=== PATIENT | male | born 1955 | race Caucasian/White ===

== ENCOUNTER 2021-03-31 00:32 | Inpatient (IN) | payer OTHER, MEDICARE ==
[2021-03-31] VITALS (15 sets, daily range): BP systolic 154–204; BP diastolic 65–136
[~2021-03-31] VITALS: Ht 152.4 cm; Wt 68.0 kg
--- NOTE | ~2021-03-31 | H ---
[facility] [place] [address] HISTORY AND PHYSICAL Name: PAWAN WHEELER Room #: 150-1 ADM IN M.R.#: [id number] Admission: 03/31/21 Attend Phys: Truman Solis MD, Discharge: Date of : 55 Report #: [id number] THIS REPORT FOR: cc: FAM - Family physician unknown FAM - Family physician unknown Truman Solis MD [facility] ~ DATE OF SERVICE: 03/31/2021 HISTORY OF PRESENT ILLNESS: The patient is a 65-year-old male who presented to emergency room, brought in by his having intercourse early this a.m., subsequently had significant substernal chest pain, radiation to left arm, shortness of breath, diaphoresis. The emergency room EKG reveals some subtle ST elevation in II, III, aVF with reciprocal changes in the lateral and anterior leads. Prior bypass surgery 10 years ago, he has been lost a Cardiology followup he says for 6 years. He is taking no medications he states. There is still some intermittent tobacco use. I was able to obtain the bypass report, it looks to be a SCOTT to an LAD and SVG to ramus 1 and sequential to ramus 2 and what appeared to be a dominant circumflex system. That was approximately 10 years ago by Reji Hardwick. Lock Corner Machine Operator at that time had been Dr. Zuniga. He has not noticed any changes, perhaps more fatigued, but there has not been any prior symptomatology of chest pain or anginal type symptoms. He has been given heparin, Lipitor 80, aspirin. Some improvement in the discomfort. He is being brought to the clinical genetics laboratory chief emergently. MEDICATIONS: None due to what appears to be noncompliance. PAST MEDICAL HISTORY: Positive for coronary artery disease with bypass surgery 10 years ago as stated above, hypertension, hypercholesterolemia, DJD, tobacco use, and appendectomy as a child. SOCIAL HISTORY: He is . Grown children. He is retired, intermittent tobacco use. No significant alcohol use. FAMILY HISTORY: Father early from premature coronary disease in his 50s, he believes. REVIEW OF SYSTEMS: Essentially negative except for stated above, some occasional hesitancy. ALLERGIES: PENICILLIN. PHYSICAL EXAMINATION: VITAL SIGNS: Pulse is 70s, blood pressure is 130s-140s/80s. HEENT: Eyes reveal xanthelasmas. Pharynx is clear. NECK: Shows preserved upstrokes without JVD or bruits. LUNGS: Slight prolonged expiratory phase, but clear anteriorly. [facility] [address] [place] [address] HISTORY AND PHYSICAL Name: PAWAN WHEELER Room #: 150-1 [facility] IN [facility]#: [id number] Admission: 03/31/21 Attend Phys: Truman Solis MD, Discharge: Date of : 55 Report #: [id number] HEART: Regular rate and rhythm, S1, S2. ABDOMEN: Soft, slightly distended, but nontender. EXTREMITIES: Reveal diminished pulses, but intact. NEUROLOGIC: Nonfocal. SKIN: Warm and dry without xanthoma or ulcer. MUSCULOSKELETAL: Generalized arthritic changes. IMPRESSION: 1. Acute inferior wall myocardial infarction. 2. Coronary artery disease with history of bypass surgery approximately 10 years ago with a SCOTT to LAD and an SVG sequential to ramus 1 and ramus intermedius 2, apparent dominant circumflex system. 3. Hypertension. 4. Hypercholesterolemia. 5. Continued tobacco use. RECOMMENDATIONS AND PLAN: The patient is emergently taken to the catheterization lab for intervention. Risks, benefits, and alternatives were discussed. We will proceed on urgently. Improvement is noted in his discomfort with the heparin. To clarify the bypass was 05/2011. Thank you for assisting in the care of this patient. By: 0131 [id number] Truman Solis MD, FACC /nt
--- NOTE | ~2021-03-31 | D ---
[facility] [place] [address] DISCHARGE SUMMARY Name: PAWAN WHEELER Room #: 212-P [facility] IN M.R.#: [id number] Admission: 03/31/21 Attend Phys: Truman Solis MD, Discharge: 04/01/21 Date of : 55 Report #: [id number] THIS REPORT FOR: cc: FAM - Family physician unknown FAM - Family physician unknown Truman Solis MD [facility] DATE OF SERVICE: 04/01/2021 HOSPITAL COURSE: The patient is a 65-year-old male who presented with a stuttering posterior infarct. He was emergently taken to the catheterization lab. This had occurred in the manager content hours after some extracurricular activity with his . He had a subtotaled circumflex, which was dilated and stented; a large OM branch, which was dilated and stented and then I was able to dilate through the proximal circumflex stent into the ramus intermedius branch. He had had a bypass graft that went to ramus intermedius 2. I suspect this was a jump and that may have also been a culprit, but there was no way to intervene on that, but a good result was obtained, with brisk flow into the circumflex system and the ramus branch through the stent. The SVG to the first ramus branch was widely patent. The SCOTT was widely patent to the LAD, with moderate disease in that LAD and this was a large wraparound LAD, filled the distal third of the inferior wall. Mild LV dysfunction. Some of this may improve. There was obviously a positive troponin. He has been pain free since, up and ambulating. He will be discharged to home on atorvastatin 40, full aspirin for 1 month and dual-antiplatelet therapy to include Effient 10 mg a day, Bystolic 10 mg a day and olmesartan 40 mg a day. Smoking cessation strongly recommended. He may use a nicotine patch if necessary. He will use melatonin at night. His baseline EKG at discharge has a right bundle-branch block and sinus rhythm with marked T-wave abnormalities in the anterior and some also inferolateral changes. DISCHARGE DIAGNOSIS: 1. MU-qihlebpvu-gbrjnoccbb infarction, with emergent intervention to circumflex system. See above. 2. Mild ischemic cardiomyopathy. 3. Hypertension. 4. Hypercholesterolemia. 5. Coronary artery disease with original coronary artery bypass graft surgery 2010. 6. Continued tobacco use, which we are hoping for smoking cessation. Followup was arranged in 2-3 weeks with an abbreviated echo to obtain baseline ejection fraction, which I suspect will be 45%-50% range. We will continue dual-antiplatelet therapy with these multiple stents for at least 1 year. He has a low bleeding risk. Smoking cessation strongly recommended. [address] [address] DISCHARGE SUMMARY Name: PAWAN WHEELER Room #: 212-P DIS IN M.R.#: [id number] Admission: 03/31/21 Attend Phys: Truman Solis MD, Discharge: 04/01/21 Date of : 55 Report #: [id number] Thank you for allowing to assist in the care of this patient. By: 9 0839 Truman Solis MD, FACC /nt
[~2021-03-31 00:32] MED LIST: ACETAMINOPHEN325 M1 PO; ATROVENT30 ML IH; CLONIDINE HCL0.3 M2 PO; CRESTOR10 MG PO; FERREX-150 PLU150 MG PO; GNP THERAPEUTI1 EACH PO; LISINOPRIL20 MG PO; LISINOPRIL40 MG PO; LORTAB 5 MG/5001 TA1 PO; MINIPRIN81 MG PO; NITROGLYCERIN0.4 MG SL; NORVASC10 MG PO; PERCOCET 5-3251 EACH PO; TOPROL XL50 MG PO
[2021-03-31] MEDS ORDERED: CHILDREN'S ASPI81 M1 PO (00:38)
[2021-03-31] MEDS ORDERED: [UNRECOGNIZED DRUG - OTHER] PO (00:39)
[2021-03-31 00:59] LABS: ABSOLUTE NEUTROPHILS 5.1 thou/uL (1.4-8.2); BASOPHILS 0.6 % (0.0-2.0); EOSINOPHILS 2.2 % (0.0-3.0); HEMATOCRIT 43.1 % (42.0-52.0); HEMOGLOBIN 14.7 gm/dL (14.0-18.0); LYMPHOCYTES 39.9 % (24.0-44.0); MCH 29.5 pg (26.0-34.0); MCV 86.6 fL (80.0-100.0); MONOCYTES 9.6 % (1.0-8.0); PLATELET COUNT 237 thou/uL (150-400); POLYS 47.7 % (36.0-66.0); RBC 4.98 mil/uL (4.50-6.00); RDW 14.7 % (10.5-14.5); WBC 10.7 thou/uL (4.0-11.0)
[2021-03-31 01:03] LABS: CALCIUM 8.8 mg/dL (8.5-10.1); CREATININE 1.3 mg/dL (0.7-1.3); POTASSIUM 3.7 mmol/L (3.5-5.1)
[2021-03-31 01:13] LABS: TOTAL BILIRUBIN 0.3 mg/dL (0.2-1.0); TOTAL PROTEIN 7.3 g/dL (6.4-8.2)
[2021-03-31 05:25] LABS: HEMATOCRIT 45.6 % (42.0-52.0); HEMOGLOBIN 15.1 gm/dL (14.0-18.0); MCH 29.1 pg (26.0-34.0); MCHC 33.1 g/dL (28.0-37.0); MCV 87.8 fL (80.0-100.0); RBC 5.19 mil/uL (4.50-6.00); RDW 15.1 % (10.5-14.5); WBC 11.1 thou/uL (4.0-11.0)
[2021-03-31 06:01] LABS: ANION GAP 12 mmol/L (7-16); BUN 17 mg/dL (7-18); CALCIUM 8.5 mg/dL (8.5-10.1); CHLORIDE 106 mmol/L (98-107); CHOLESTEROL 215 mg/dL (<200); CO2 24 mmol/L (21-32); CREATININE 1.1 mg/dL (0.7-1.3); GLUCOSE 107 mg/dL (74-106); HDL CHOLESTEROL 38 mg/dL (>40); LDL CHOLESTEROL 150 mg/dL (<100); POTASSIUM 3.9 mmol/L (3.5-5.1); SODIUM 142 mmol/L (136-145); TC:HDL 5.7 Ratio (Not establshd); TRIGLYCERIDE 135 mg/dL (<150); VLDL 27 mg/dL (<40)
[2021-03-31 06:07] LABS: SERUM ASSESSMENT Clear
--- NOTE | 2021-03-31 08:28 | NUR ---
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
--- NOTE | 2021-03-31 16:43 | NUR ---
PT DID WELL THROUGHOUT SHIFT. GROIN SITE NO REDNESS, HEMATOMA, OR ANY OTHER ISSUES. PT DID BECOME ANXIOUSE THIS AM RECEIVED 1 DOSE OF XANAX AND NICOTINE PATCH, PT STATED THAT HELPED AND STATED NO NEW COMPLAINTS. URINE OUTPUT ADEQUATE. REMOVED O2 THIS AM PT REMAINED ABOVE 97 PERCENT THROUGHOUT SHIFT.
[2021-04-01 00:03] VITALS: BP 162/107
[2021-04-01 04:19] LABS: HEMOGLOBIN 14.8 gm/dL (14.0-18.0); MCH 29.9 pg (26.0-34.0); MCHC 34.4 g/dL (28.0-37.0); MCV 87.1 fL (80.0-100.0); RBC 4.94 mil/uL (4.50-6.00); RDW 14.8 % (10.5-14.5)
[2021-04-01 04:26] LABS: CALCIUM 8.7 mg/dL (8.5-10.1); CREATININE 1.2 mg/dL (0.7-1.3); POTASSIUM 3.6 mmol/L (3.5-5.1)
[2021-04-01 04:28] VITALS: BP 172/100
[2021-04-01 06:30] VITALS: BP 177/88
[2021-04-01 07:17] VITALS: BP 149/92
--- NOTE | 2021-04-01 07:32 | NUR ---
SLEPT PART OF SHIFT. BLOOD PRESSURE ELEVATED THIS SHIFT. LANDSCAPING AND GROUNDSKEEPING LABORER NOTIFIED AND HYDRALIZINE GIVEN X1 WITHOUT RELIEF BP REMAINED 177/88. AM MEDICATIONS GIVEN EARLY AND BP now 149/92. WORKING ON GOALS AND PLAN OF CARE, NOTIFIED DR. HUSSEIN THIS AM OF ORDERS FOR HYDRALIZE FROM LANDSCAPING AND GROUNDSKEEPING LABORER AND MEDICATIONS GIVEN EARLY. PATIENT ANXIOUS AND STATES EVERY 30 RR HAS SHORTNESS OF AIR. AWARE. NO NEW ORDERS. CONTINUE TO ASSES CLOSELY.
[2021-04-01] MEDS ORDERED: EFFIENT10 MG PO ×2 (09:07→09:08)
[2021-04-01] MEDS ORDERED: BENICAR40 MG PO ×2 (09:07→09:08)
[2021-04-01] MEDS ORDERED: ASPIRIN325 PO ×2 (09:07→09:08)
[2021-04-01] MEDS ORDERED: BYSTOLIC10 MG PO ×2 (09:07→09:08)
[2021-04-01] MEDS ORDERED: LIPITOR40 MG PO ×2 (09:07→09:08)
--- NOTE | 2021-04-01 10:26 | 2DMMODE ---
[facility] [place] [address] 2 D/M-MODE ECHOCARDIOGRAM Name: PAWAN WHEELER Room #: 212-P ADM IN M.R.#: [id number] Admission: 03/31/21 Attend Phys: Truman Solis MD, Discharge: Date of : 55 Report #: [id number] THIS REPORT FOR: cc: FAM - Family physician unknown FAM - Family physician unknown Truman Solis MD [facility] ~ APPROVED REPORT Study performed: 03/31/2021 08:38:52 EXAM: Comprehensive 2D, Doppler, and color-flow Echocardiogram Patient Location: Bedside Room #: 212 Status: on-call BSA: 1.77 HR: 77 bpm BP: 178/97 mmHg Rhythm: Sinus arrhythmia Other Information Study Quality: Adequate Indications STEMI. Hx: CABG, HTN, HLP, tobacco abuse. 2D Dimensions RVDd: 23.28 mm IVSd: 13.43 (7-11mm) LVOT Diam: 20.44 (18-24mm) LVDd: 48.04 mm PWd: 13.71 (7-11mm) Ascending Ao: 33.35 (22-36mm) LVDs: 37.42 (25-40mm) Left Atrium: 37.53 (27-40mm) Aortic Root: 40.19 mm Volumes Left Atrial Volume (Systole) Single Plane 4CH: 23.89 mL Single Plane 2CH: 43.08 mL LA ESV Index: 19.00 mL/m2 Aortic Valve AoV Peak Asael.: 1.22 m/s AO Peak Gr.: 5.99 mmHg LVOT Max P.19 mmHg LVOT Max V: 0.89 m/s [facility] [address] [place] [address] 2 D/M-MODE ECHOCARDIOGRAM Name: PAWAN WHEELER Room #: 212-P [facility] IN [facility]#: [id number] Admission: 03/31/21 Attend Phys: Trumna Solis, Discharge: Date of : 55 Report #: [id number] MONAE Vmax: 2.39 cm2 Mitral Valve E/A Ratio: 0.7 MV Decel. Time: 265.37 ms MV E Max Asael.: 0.56 m/s MV A Asael.: 0.77 m/s MV PHT: 76.96 ms IVRT: 128.03 ms Pulmonary Valve PV Peak Asael.: 0.79 m/s PV Peak Gr.: 2.51 mmHg Tricuspid Valve RAP Estimate: 5.00 mmHg Left Ventricle The left ventricle is normal size. Regional wall motion abnormalities are noted. Mild concentric left ventricular hypertrophy. Left ventricular systolic function is mildly decreased. LVEF is 45%.inf lateral hypokinesis Mild diastolic dysfunction is present (impaired relaxation pattern). Right Ventricle The right ventricle is normal size. The right ventricular systolic function is normal. Atria The left atrium size is normal. The right atrium size is normal. Aortic Valve The aortic valve is normal in structure. No aortic regurgitation is present. There is no aortic valvular stenosis. Mitral Valve The mitral valve is normal in structure. There is no mitral valve regurgitation noted. No evidence of mitral valve stenosis. Tricuspid Valve The tricuspid valve is normal in structure. There is no tricuspid valve regurgitation noted. Unable to assess PA pressure. Pulmonic Valve The pulmonary valve is normal in structure. Trace pulmonic regurgitation. [facility] [address] [place] [address] 2 D/M-MODE ECHOCARDIOGRAM Name: PAWAN WHEELER Room #: 212-P [facility] IN M.R.#: [id number] Admission: 03/31/21 Attend Phys: Truman Solis, Discharge: Date of : 55 Report #: [id number] Great Vessels Aortic root is mildly dilated. The ascending aorta is normal in size. IVC is normal in size and collapses >50% with inspiration. Pericardium There is no pericardial effusion. <Conclusion> The left ventricle is normal size. Mild concentric left ventricular hypertrophy. LVEF is 45%.inf lateral hypokinesis Mild diastolic dysfunction is present (impaired relaxation pattern). The right ventricle is normal size. The left atrium size is normal. The aortic valve is normal in structure. There is no mitral valve regurgitation noted. There is no tricuspid valve regurgitation noted. Unable to assess PA pressure. Aortic root is mildly dilated. There is no pericardial effusion. <ELECTRONICALLY SIGNED> By: Truman Solis MD, FACC 04/01/21 1026 1026 1026 Truman Solis MD, FAC /INF
[2021-04-01 10:35] VITALS: BP 149/92
--- NOTE | 2021-04-01 10:36 | CATHLAB ---
[facility] [place] [address] INVASIVE PROCEDURE REPORT Name: PAWAN WHEELER Room #: 212-P ADM IN M.R.#: [id number] Admission: 03/31/21 Attend Phys: Truman Solis MD, Discharge: Date of : 55 Report #: [id number] THIS REPORT FOR: cc: FAM - Family physician unknown FAM - Family physician unknown Truman Solis MD [facility] ~ APPROVED REPORT Study performed: 03/31/2021 01:03:03 Patient Details Patient Status: ED Room #: The patient is a 65 year-old male Event Personnel Truman Solis Career Information Specialist, Sara Bernal RN RN, Jazmyne Glover RT(R)() Monitor, Aury Culver RTR, SENIOR INVESTMENT MANAGER Scrub Procedures Performed Art Access - R femoral artery* DYLAN Place w/wo Plasty Single OM 723089 DYLAN Place w/wo Plasty Single CIRC 679479 PTCA Single Vessel RAMUS Interm 1144383 PCISINGLE Left Heart Cath Coronaries, Bypass Grafts 7333835 LHCCORCABG Abdominal Aortography 644107 83733 Initial Mod Sed Same Phys/QHP Gr5y 667140 84865 Mod Sed Same Phys/QHP Ea 742349 Procedure Narrative The Right Groin^ was infiltrated with 1% Lidocaine subcutaneous anesthesia. A PINNACLE 6FR Sheath #[id number] sheath was inserted into the RFA^. Coronary angiography was performed using coronary diagnostic catheters. The right coronary system was accessed and visualized with a JR4 catheter. The left coronary system was accessed and visualized with a JLR catheter. The left ventricle was accessed and visualized with a PIGTAIL catheter. The patient tolerated the procedure well and there were no complications associated with the procedure. There was no hematoma. The PT had grafts that were visualized witha 6F RCB catheter. SVG to Ramus 1, SVG to Ramus 2 and SCOTT to LAD. Intraoperative Conscious Sedation Fentanyl 50 mcg Versed 1 mg Fluoro Time: 12.03 minutes Dose: DAP 90250.20 cGycm2 [facility] [address] [place] [address] INVASIVE PROCEDURE REPORT Name: LIAMPAWAN Roby Room #: 212-P [facility]#: [id number] Admission: 03/31/21 Attend Phys: Truman Solis, Discharge: Date of : 55 Report #: [id number] Contrast Type and Amount: Visipaque 207 ml Hemodynamics The aortic pressure is 192/95 mmHg with a mean of 141 mmHg. The left ventricular pressure is 180/18 mmHg with a mean of mmHg. The left ventricular end diastolic pressure is 37 mmHg. PCI Technique Lesion Percutaneous coronary intervention was performed on the first obtuse marginal branch segment. A LAUNCHER 6FR EBU 3.75 #[id number] Guide Catheter was used to engage the ostium. A Luge Wire .014 x 182CM #[id number] Interventional Guidewire was used to cross the lesion. BALLOON DILATION A Balloon catheter Sprinter OTW 2.25 x 12 #[id number] was inserted and inflated up to 8atm for 18seconds. Additional Inflation: 14atm for 15seconds. Additional Inflation: 14atm for 22seconds. STENT DEPLOYMENT A stent RESOLUTE ISELA OTW 2.25 X 12 #[id number] was inserted and inflated up to 12atm for 23seconds. PCI Technique Lesion 3 Percutaneous Coronary Intervention was performed on the proximal circumflex artery segment. A LAUNCHER 6FR EBU 3.75 #005322 Guide Catheter was used to engage the ostium. A Luge Wire .014 x 182CM #[id number] Interventional Guidewire was used to cross the lesion. Stent Deployment A stent RESOLUTE ISELA OTW 2.5 X 22 #[id number] was inserted and inflated up to 18atm for 29seconds. PCI Technique Lesion 4 Percutaneous Coronary Intervention was performed on the ramus intermedius segment. A LAUNCHER 6FR EBU 3.75 #[id number] Guide Catheter was used to engage the ostium. A Luge Wire .014 x 182CM #[id number] Interventional Guidewire was used to cross the lesion. Balloon Dilation A Balloon catheter Sprinter OTW 2.0 x 10 #[id number] was inserted and inflated up to 10atm for 30seconds. Additional Inflation: 14atm for 29seconds. Conclusion #1 Successful PTCA stent of a mid circumflex OM branch subtotal with [address] [address] INVASIVE PROCEDURE REPORT Name: PAWAN WHEELER Room #: 212-P [facility] IN M.R.#: [id number] Admission: 03/31/21 Attend Phys: Truman Solis, Discharge: Date of : 55 Report #: [id number] placement of a 2.25 x 12 resolute stent postdilated 2.4 mm SOFI grade III flow into the jailed OM and distal OM. #2 successful PTCA stent of the proximal circumflex which gave rise to #1. Long high-grade lesion 90 to 95%. Placement of a 2.5 x 22 resolute stent postdilated 2.7 mm SOFI grade III flow. This did retirement a high rising OM or ramus branch that had previously been bypassed. #3 successful PTCA through the proximal circumflex stent into the ramus branch or high rising OM which was subtotaled to 30% residual balloon through the stent. It appears that the sequential graft to ramus 1 was patent but then to ramus 2 was occluded this would be in this vessel. Now patent via the [place] system #4 the [place] LAD is occluded proximally. #5 the LAD is mildly disease giving rise to the circumflex and the occluded LAD. #6 the SCOTT is widely patent. Appears to be at least a moderate stenosis in the subclavian proximal to the SCOTT takeoff. Will evaluate that noninvasively. The LAD is an moderately disease and this is a large wraparound LAD that supplies the distal third of the inferior wall. #7 small nondominant right coronary artery. #8 there is an SVG which is a moderate narrowing of 50% long in the proximal graft filling a moderate size ramus branch. It is appears that this was a sequential to a second ramus branch according to the op report that branch is occluded. #9 normal mall left ventricular size with inferior inferior lateral hypokinesis EF 45% range. #10 abdominal aortogram revealing some tortuosity calcification with a small infrarenal aneurysm. Will evaluate noninvasively outpatient. Recommendations and plan: Continue aggressive risk factor modification. Dual antiplatelet therapy initiated. Resolution of EKG and chest pain post procedure. Will transfer to CCU to follow post coronary stent protocol. <ELECTRONICALLY SIGNED> By: Truman Solis MD, FACC 04/01/21 1036 1036 103 Truman Solis MD, FAC /INF
--- NOTE | 2021-04-01 12:02 | NUR ---
ASSESSMENT CHARTED. PT ALERT AND ORIENTED. VSS. RIGHT GROIN INCISION C/DI. NO HEMATOMA NOTED. DENIED HAVING PAIN OR DISCOMFORT. ORDERS GIVEN TO DISCHARGE PT TO HOME. DISCHARGE INSTRUCTIONS GIVEN TO PT. PT VERBERLISED UNDERSTANDING.
--- NOTE | 2021-04-02 07:27 | EKG ---
[place] [address] [facility] [place] [address] ELECTROCARDIOGRAM REPORT Name: PAWAN WHEELER Room #: 212-[facility] IN M.R.#: [id number] Admission: 03/31/21 Attend Phys: Truman Solis MD, Discharge: 04/01/21 Date of : 55 Report #: [id number] [facility] ED Test Date: 2021-03-31 Test Time: 00:35:19 Pat Name: PAWAN WHEELER Department: Room: 212 Gender: M Geology Scientist: tb : 1955 Requested By: Truman Solis Order Number: [id number] MD: Shahram Stein Measurements Intervals [place] Rate: 72 P: 72 ND: 139 QRS: 77 QRSD: 94 T: 105 QT: 368 QTc: 403 Interpretive Statements Sinus rhythm Multiple premature complexes, vent & supraven Probable left atrial enlargement Probable LVH with secondary repol abnrm Inferior infarct, acute (RCA) Probable RV involvement, suggest recording right precordial leads Baseline wander in lead(s) V2 Compared to ECG 03/31/2021 00:33:43 No significant changes Electronically Signed On 04-02-2021 7:27:23 CDT by Shahram Stein [email or web address] <ELECTRONICALLY SIGNED> By: Shahram Stein MD, [facility] 04/02/21 0727 Shahram Stein MD, [facility] /EPI
--- NOTE | 2021-04-02 07:27 | EKG ---
[place] [address] [place] [address] ELECTROCARDIOGRAM REPORT Name: PAWAN WHEELER Room #: 212-P [facility] IN .R.#: [id number] Admission: 03/31/21 Attend Phys: Truman Solis MD, Discharge: 04/01/21 Date of : 55 Report #: [id number] [facility] ED Test Date: 2021-03-31 Test Time: 00:33:43 Pat Name: PAWAN WHEELER Department: Room: [facility] [place] Gender: M Auger Mill Operator: katherine : 1955 Requested By: Reagan Guillen Order Number: [id number] MD: Shahram Stein Measurements Intervals [place] Rate: 78 P: 75 NV: 139 QRS: 80 QRSD: 94 T: 105 QT: 334 QTc: 381 Interpretive Statements Sinus rhythm Multiple premature complexes, vent & supraven Probable left atrial enlargement Probable LVH with secondary repol abnrm Inferoposterior infarct, acute (RCA) Probable RV involvement, suggest recording right precordial leads Baseline wander in lead(s) V1 Compared to ECG 05/15/2011 07:45:16 Myocardial infarct finding now present T-wave abnormality no longer present Possible ischemia no longer present Electronically Signed On 04-02-2021 7:27:16 CDT by Shahram Stein [email or web address] <ELECTRONICALLY SIGNED> By: Shahram Stein MD, [facility] 04/02/21 0727 Shahram Stein MD, [facility] /EPI
--- NOTE | 2021-04-02 07:34 | EKG ---
[address] [place] [address] ELECTROCARDIOGRAM REPORT Name: PAWAN WHEELER Room #: 212[facility] .R.#: [id number] Admission: 03/31/21 Attend Phys: Truman Solis MD, Discharge: 04/01/21 Date of : 55 Report #: [id number] [facility] Test Date: 2021-04-01 Test Time: 08:55:16 Pat Name: PAWAN WHEELER Department: Room: 212 Gender: M Scaffold Builder: MIRIAM : 1955 Requested By: Flori Carreon Order Number: [id number] MD: Shahram Stein Measurements Intervals [place] Rate: 73 P: 61 [place]: 141 QRS: 20 QRSD: 148 T: -51 QT: 460 QTc: 507 Interpretive Statements Sinus rhythm Left atrial enlargement Right bundle branch block Inferior infarct, age indeterminate Compared to ECG 03/31/2021 00:35:19 Right bundle-branch block now present Myocardial infarct finding still present Electronically Signed On 04-02-2021 7:34:41 CDT by Shahram Stein [email or web address] <ELECTRONICALLY SIGNED> By: Shahram Stein MD, FAC 04/02/21 0734 0855 0855 Shahram Stein MD, [facility] /EPI
== END 2021-04-01 13:13 | disposition home or self-care (01) | DRG 246 ==
LOC: ER 00:32 → TBA 02:41 → 2N 03:23
PROVIDERS: Emergency Medicine; Nurse Practitioner Adult Health; ADMIT Internal Medicine Cardiovascular Disease; ATTEND Internal Medicine Cardiovascular Disease
DX: I21.19 ST elevation (STEMI) myocardial infarction involving other coronary artery of inferior wall (principal); I50.43 Acute on chronic combined systolic (congestive) and diastolic (congestive) heart failure; I25.5 Ischemic cardiomyopathy; E78.00 Pure hypercholesterolemia, unspecified; M19.90 Unspecified osteoarthritis, unspecified site; I45.10 Unspecified right bundle-branch block; I10 Essential (primary) hypertension; I25.10 Atherosclerotic heart disease of native coronary artery without angina pectoris; Z20.822 Contact with and (suspected) exposure to COVID-19; Z95.1 Presence of aortocoronary bypass graft; Z90.49 Acquired absence of other specified parts of digestive tract; Z79.899 Other long term (current) drug therapy; Z79.82 Long term (current) use of aspirin; Z88.0 Allergy status to penicillin; Z82.49 Family history of ischemic heart disease and other diseases of the circulatory system; Z72.0 Tobacco use; Z71.6 Tobacco abuse counseling
CPT/HCPCS: 10081

== ENCOUNTER → 2021-04-20 | Outpatient (CLI) | payer OTHER, MEDICARE ==
[~2021-04-20] MED LIST changes: +ASPIRIN325 PO; +BENICAR40 MG PO; +BYSTOLIC10 MG PO; +CHILDREN'S ASPI81 M1 PO; +EFFIENT10 MG PO; +LIPITOR40 MG PO; +[UNRECOGNIZED DRUG - OTHER] PO
== END ==
LOC: SJCVCIMAG 11:28
PROVIDERS: ATTEND Internal Medicine Cardiovascular Disease
DX: I65.23 Occlusion and stenosis of bilateral carotid arteries (principal); I71.4 Abdominal aortic aneurysm, without rupture; I25.10 Atherosclerotic heart disease of native coronary artery without angina pectoris; I10 Essential (primary) hypertension; E78.00 Pure hypercholesterolemia, unspecified; I25.5 Ischemic cardiomyopathy; Z79.82 Long term (current) use of aspirin; Z79.899 Other long term (current) drug therapy; Z87.891 Personal history of nicotine dependence

== ENCOUNTER → 2021-04-24 | Outpatient (CLI) | payer OTHER, MEDICARE | LOC: SJCVCIMAG 07:40 | PROVIDERS: ATTEND Internal Medicine Cardiovascular Disease | DX: R94.31 Abnormal electrocardiogram [ECG] [EKG] (principal); I25.10 Atherosclerotic heart disease of native coronary artery without angina pectoris; I10 Essential (primary) hypertension; E78.00 Pure hypercholesterolemia, unspecified; I71.4 Abdominal aortic aneurysm, without rupture; Z87.891 Personal history of nicotine dependence; Z79.82 Long term (current) use of aspirin; Z79.899 Other long term (current) drug therapy; Z88.0 Allergy status to penicillin; Z95.818 Presence of other cardiac implants and grafts; Z95.1 Presence of aortocoronary bypass graft; Z72.89 Other problems related to lifestyle ==

== ENCOUNTER → 2021-06-25 | Outpatient (CLI) | payer OTHER, MEDICARE | END | disposition home or self-care (01) | LOC: SJCVC 09:40 | PROVIDERS: ATTEND Internal Medicine Cardiovascular Disease | DX: R94.31 Abnormal electrocardiogram [ECG] [EKG] (principal); I25.10 Atherosclerotic heart disease of native coronary artery without angina pectoris; I25.5 Ischemic cardiomyopathy; I10 Essential (primary) hypertension; E78.00 Pure hypercholesterolemia, unspecified; I71.4 Abdominal aortic aneurysm, without rupture; Z88.0 Allergy status to penicillin; Z95.0 Presence of cardiac pacemaker; Z95.1 Presence of aortocoronary bypass graft ==

== ENCOUNTER → 2021-08-28 | Outpatient (CLI) | payer OTHER, MEDICARE | LOC: MRI 09:43 | PROVIDERS: ATTEND Family Medicine | DX: M51.36 Other intervertebral disc degeneration, lumbar region (principal); M47.817 Spondylosis without myelopathy or radiculopathy, lumbosacral region; N28.1 Cyst of kidney, acquired; I72.8 Aneurysm of other specified arteries; M48.061 Spinal stenosis, lumbar region without neurogenic claudication ==

== ENCOUNTER → 2021-08-29 | Outpatient (CLI) | payer OTHER, MEDICARE ==
[~2021-08-29] MED LIST changes: +ASA81BEC PO; +EDARBYCLOR 40-1 EAC1 PO
== END ==
LOC: SJCVCIMAG 08:33
PROVIDERS: ATTEND Internal Medicine Cardiovascular Disease
DX: I65.21 Occlusion and stenosis of right carotid artery (principal); I73.9 Peripheral vascular disease, unspecified; I77.9 Disorder of arteries and arterioles, unspecified; I25.10 Atherosclerotic heart disease of native coronary artery without angina pectoris; I71.4 Abdominal aortic aneurysm, without rupture; I10 Essential (primary) hypertension; Z95.1 Presence of aortocoronary bypass graft; E78.00 Pure hypercholesterolemia, unspecified; Z82.49 Family history of ischemic heart disease and other diseases of the circulatory system; Z87.891 Personal history of nicotine dependence; Z72.89 Other problems related to lifestyle; Z79.82 Long term (current) use of aspirin; Z88.0 Allergy status to penicillin; Z79.899 Other long term (current) drug therapy

== ENCOUNTER → 2021-09-03 | Outpatient (CLI) | payer OTHER, MEDICARE ==
[~2021-09-03] VITALS: Ht 167.6 cm; Wt 65.8 kg
[2021-09-03 09:23] VITALS: BP 144/79
[2021-09-03 09:33] LABS: HEMATOCRIT 40.2 % (42.0-52.0); HEMOGLOBIN 13.6 gm/dL (14.0-18.0); MCH 29.9 pg (26.0-34.0); MCHC 33.7 g/dL (28.0-37.0); MCV 88.7 fL (80.0-100.0); RBC 4.53 mil/uL (4.50-6.00); RDW 16.2 % (10.5-14.5); WBC 7.5 thou/uL (4.0-11.0)
[2021-09-03 09:41] LABS: CALCIUM 9.2 mg/dL (8.5-10.1); CREATININE 1.7 mg/dL (0.7-1.3); POTASSIUM 3.4 mmol/L (3.5-5.1)
== END | disposition home or self-care (01) ==
LOC: CATH 08:48
PROVIDERS: ATTEND Nuclear Medicine Nuclear Cardiology
DX: I70.211 Atherosclerosis of native arteries of extremities with intermittent claudication, right leg (principal); I70.1 Atherosclerosis of renal artery; M79.604 Pain in right leg; M79.605 Pain in left leg; I10 Essential (primary) hypertension; I25.10 Atherosclerotic heart disease of native coronary artery without angina pectoris; E78.5 Hyperlipidemia, unspecified; I25.2 Old myocardial infarction; I25.5 Ischemic cardiomyopathy; F17.210 Nicotine dependence, cigarettes, uncomplicated; E78.00 Pure hypercholesterolemia, unspecified; Z98.890 Other specified postprocedural states; Z79.899 Other long term (current) drug therapy; Z95.1 Presence of aortocoronary bypass graft; Z90.49 Acquired absence of other specified parts of digestive tract

== ENCOUNTER → 2021-09-10 | Outpatient (CLI) | payer OTHER, MEDICARE ==
[~2021-09-10] VITALS: Ht 165.1 cm; Wt 65.8 kg
[2021-09-10 07:33] VITALS: BP 122/79
[2021-09-10 07:50] LABS: HEMATOCRIT 36.1 % (42.0-52.0); HEMOGLOBIN 12.3 gm/dL (14.0-18.0); MCH 29.9 pg (26.0-34.0); RBC 4.1 mil/uL (4.50-6.00); RDW 15.9 % (10.5-14.5); WBC 8.2 thou/uL (4.0-11.0)
[2021-09-10 08:18] LABS: CALCIUM 9.5 mg/dL (8.5-10.1); CREATININE 1.7 mg/dL (0.7-1.3); POTASSIUM 3.8 mmol/L (3.5-5.1)
== END | disposition home or self-care (01) ==
LOC: CATH 06:14
PROVIDERS: ATTEND Nuclear Medicine Nuclear Cardiology
DX: I70.212 Atherosclerosis of native arteries of extremities with intermittent claudication, left leg (principal); M79.605 Pain in left leg; M79.604 Pain in right leg; I10 Essential (primary) hypertension; E78.00 Pure hypercholesterolemia, unspecified; I25.2 Old myocardial infarction; I25.5 Ischemic cardiomyopathy; Z98.890 Other specified postprocedural states; Z79.899 Other long term (current) drug therapy; Z79.82 Long term (current) use of aspirin; Z90.49 Acquired absence of other specified parts of digestive tract; Z95.1 Presence of aortocoronary bypass graft; Z87.891 Personal history of nicotine dependence; Z88.0 Allergy status to penicillin; Z88.8 Allergy status to other drugs, medicaments and biological substances